=== PATIENT | male | born 1990 | race Caucasian/White ===

== ENCOUNTER → 2016-08-26 | Outpatient (CLI) | payer OTHER ==
[~2016-08-26] MED LIST: IOHEXOL 350 MG/ML 100 ML (OMNIPAQUE 350) VIAL IV ONE; NS 100 ML (IVPB) BAG IV ONE
--- OUTSIDE RECORDS SUMMARY | 2016-08-26 10:33 | XMS REPORT ---
Author Author ARUN JOSEPH Organization [employer] Address Unknown Phone Unavailable Care Team Providers Care Textile Screen Printer Name Role Phone ARUN JOSEPH CP Unavailable Allergies, Adverse Reactions, Alerts Substance Reaction Event Type N.K.D.A. Info Not Available Non Drug Allergy Problems Problem Type Condition Code Onset Dates Condition Status Assessment Elevated blood pressure I10 Active Assessment Well adult health check Z00.00 Active Assessment Obesity, unspecified obesity severity, unspecified obesity type E66.9 Active Problem Elevated blood pressure I10 Active Problem Dermatophytosis of nail 110.1 Active Problem Obesity, unspecified obesity severity, unspecified obesity type E66.9 Active Assessment Screening Z13.9 Active Assessment Visit for TB skin test Z11.1 Active Problem Costochondritis 733.6 Active Problem Other abnormal glucose 790.29 Active Medications No Known Medications Procedures Procedure Coding System Code Date DRUG SCREEN NON TLC DEVICES CPT-4 16649 May 31, 2016 TB INTRADERMAL TEST CPT-4 70156 May 31, 2016 TB INTRADERMAL TEST CPT-4 44592 May 31, 2016 Preventive Care Est Pt. Age 18-39 CPT-4 22359 May 31, 2016 Vital Signs Date/Time: May 31, 2016 Cardiac Monitoring Heart Rate 92 bpm Weight 374 lbs Height 69 in BMI 55.22 Index Blood Pressure Diastolic 90 mmHg Blood Pressure Systolic 118 mmHg Results No Known Results Summary Purpose [employer] Submission
--- NOTE | 2016-08-26 12:04 | Diagnostic Imaging Report ---
PROCEDURE: CT head with and without contrast. TECHNIQUE: Multiple contiguous axial images were obtained through the brain before and after the administration of intravenous contrast. INDICATION: Left facial numbness and weakness. CONTRAST: 80 mL Omnipaque-350 is administered intravenously. FINDINGS: The unenhanced phase demonstrates no intracranial hemorrhage, edema or mass effect. The brain parenchyma and ac-white matter differentiation are preserved. No hydrocephalus. No extra-axial fluid collection or hemorrhage is seen. The phase after contrast administration demonstrates no enhancing mass. The paranasal sinuses demonstrate opacification of the left frontal sinus. There is a polypoid lesion seen in the right frontal sinus with contrast enhancement measuring 1.4 x 0.8 cm. This is only seen on one axial image and could be artifact from volume averaging on this CT head protocol study. There is also mucosal thickening in the right maxillary sinus associated with small sinus lumen seen in favor of chronic sinusitis. There is opacification in the ethmoid air cells more prominent on the right side. There is a depressed fracture of the medial wall of the right orbit, likely old. IMPRESSION: 1. No hemorrhage or abnormal enhancement intracranially. 2. There is sinus disease involving the right frontal, the right maxillary and the right ethmoidal air cells, as described above. There is question of enhancing polypoid mass measuring 1.5 cm in the right frontal sinus that is only seen on a single image and could possibly be an artifact. Clinical correlation, and dedicated sinus CT scan or MRI with and without intravenous contrast is recommended for further evaluation. Report given to Dr. Roldan at 12:03 p.m. 08/26/2016/cb Dictated by: Dictated on workstation # [id number]
== END ==
LOC: RAD 10:30
PROVIDERS: ATTEND Internal Medicine
DX: R29.810 Facial weakness (principal)
CPT/HCPCS: 70470

== ENCOUNTER 2023-05-08 08:40 | Emergency (ER) | payer SELFPAY ==
[~2023-05-08] VITALS: Ht 175 cm; Wt 156.0 kg
[2023-05-08 08:40] VITALS: BP 135/85
--- NOTE | 2023-05-08 08:59 | ED Abdominal Pain ---
General Chief Complaint: Abdominal/GI Problems Stated Complaint: ABD PAIN RIGHT SIDE Nursing Triage Note: ARRIVED VIA AMB WITH COMPLAINTS OF RIGHT SIDED ABD PAIN STARTING ON TUESDAY. WENT TO WALK IN YESTERDAY AND PRESCRIBED PEPCID. ALSO COMPLAINS OF LOOSE STOOLS. Source of Information: Patient Exam Limitations: No Limitations History of Present Illness Date Seen by Provider: May 08, 2023 Time Seen by Provider: 08:47 Initial Comments 32-year-old male presents to the emergency department today for right-sided abdominal pain. Symptoms have been constant since Tuesday and worsening slightly. No fevers chills nausea or vomiting. He was seen at the walk-in clinic yesterday and told he might be gas. Pain seems to focus in the right mid to lower abdomen and described as sharp stabbing without radiation. No obvious aggravating or alleviating factors. He has had normal bowel movements and normal urine output without any other symptoms. He has not had any intra- abdominal surgeries. All other systems reviewed and negative except documented per HPI. Voice recognition software was used to help create this chart Allergies and Home Medications Allergies Coded Allergies: No Allergy Information Available (Unverified , 08/26/16) Patient Home Medication List Home Medication List Reviewed: Yes Review of Systems Review of Systems Constitutional: see HPI Past Dxvkpby-Ndjpay-Nxzhwg Hx Patient Social History Tobacco Use?: No Substance use?: No Alcohol Use?: No Physical Exam Vital Signs Vital Signs - First Documented 05/08/23 08:40 Temp 36.7 Pulse 97 Resp 16 B/P (MAP) 135/85 (102) Pulse Ox 96 O2 Delivery Room Air Capillary Refill : Less Than 3 Seconds Height/Weight/BMI Height: '" Weight: lbs. oz. kg; 50.00 BMI Method: General Appearance: WD/WN, no apparent distress HEENT: normal ENT inspection, pharynx normal Neck: non-tender, supple Respiratory: chest non-tender, lungs clear, normal breath sounds, no respiratory distress, no accessory muscle use Cardiovascular: regular rate, rhythm, no murmur Gastrointestinal: normal bowel sounds, soft, no organomegaly, other (There is tenderness palpation the right mid abdomen with voluntary guarding. No rebound tenderness. No mass organomegaly. Negative Carlos sign. Negative Rovsing, obturator. Does have some mild periumbilical tenderness.) Extremities: normal range of motion, non-tender, normal inspection Skin: normal color, warm/dry Progress/Results/Core Measures Results/Orders Lab Results Laboratory Tests Test 05/08/23 08:50 05/08/23 09:09 Range/Units White Blood Count 9.4 4.3-11.0 10^3/uL Red Blood Count 5.25 4.30-5.52 10^6/uL Hemoglobin 15.1 13.3-17.7 g/dL Hematocrit 45 40-54 % Mean Corpuscular Volume 85 80-99 fL Mean Corpuscular Hemoglobin 29 25-34 pg Mean Corpuscular Hemoglobin Concent 34 32-36 g/dL Red Cell Distribution Width 13.1 10.0-14.5 % Platelet Count 262 130-400 10^3/uL Mean Platelet Volume 9.5 9.0-12.2 fL Immature Granulocyte % (Auto) 1 % Neutrophils (%) (Auto) 67 42-75 % Lymphocytes (%) (Auto) 24 12-44 % Monocytes (%) (Auto) 7 0-12 % Eosinophils (%) (Auto) 1 0-10 % Basophils (%) (Auto) 1 0-10 % Neutrophils # (Auto) 6.2 1.8-7.8 10^3/uL Lymphocytes # (Auto) 2.2 1.0-4.0 10^3/uL Monocytes # (Auto) 0.7 0.0-1.0 10^3/uL Eosinophils # (Auto) 0.1 0.0-0.3 10^3/uL Basophils # (Auto) 0.1 0.0-0.1 10^3/uL Immature Granulocyte # (Auto) 0.1 0.0-0.1 10^3/uL Sodium Level 140 135-145 MMOL/L Potassium Level 4.1 3.6-5.0 MMOL/L Chloride Level 104 98-107 MMOL/L Carbon Dioxide Level 25 21-32 MMOL/L Anion Gap 11 5-14 MMOL/L Blood Urea Nitrogen 11 7-18 MG/DL Creatinine 0.76 0.60-1.30 MG/DL Estimat Glomerular Filtration Rate 121 BUN/Creatinine Ratio 14 Glucose Level 127 H 70-105 MG/DL Calcium Level 10.0 8.5-10.1 MG/DL Corrected Calcium 8.5-10.1 MG/DL Total Bilirubin 1.0 0.1-1.0 MG/DL Aspartate Amino Transf (AST/SGOT) 16 5-34 U/L Alanine Aminotransferase (ALT/SGPT) 23 0-55 U/L Alkaline Phosphatase 71 40-136 U/L Total Protein 8.2 6.4-8.2 GM/DL Albumin 4.7 H 3.2-4.5 GM/DL Lipase 28 8-78 U/L Urine Color YELLOW Urine Clarity CLEAR Urine pH 5.5 5-9 Urine Specific [place] >=1.030 1.016-1.022 Urine Protein 1+ H NEGATIVE Urine Glucose (UA) NEGATIVE NEGATIVE Urine Ketones NEGATIVE NEGATIVE Urine Nitrite NEGATIVE NEGATIVE Urine Bilirubin NEGATIVE NEGATIVE Urine Urobilinogen 0.2 < = 1.0 MG/DL Urine Leukocyte Esterase NEGATIVE NEGATIVE Urine RBC (Auto) NEGATIVE NEGATIVE Urine RBC NONE /HPF Urine WBC NONE /HPF Urine Squamous Epithelial Cells NONE /HPF Urine Crystals NONE /LPF Urine Bacteria NEGATIVE /HPF Urine Casts NONE /LPF Urine Mucus NEGATIVE /LPF Urine Culture Indicated NO My Orders Orders - RICHIE ARAUJO DO Comprehensive Metabolic Panel (05/08/23 08:56) Ua Culture If Indicated (05/08/23 08:56) Ct Abdomen/Pelvis W (05/08/23 08:56) Cbc With Automated Diff (05/08/23 08:56) Ketorolac Injection (Ketorolac Injection (05/08/23 09:00) Lipase (05/08/23 08:56) Iohexol Injection (Omnipaque 350 Mg/Ml 1 (05/08/23 09:00) Received Contrast (Hold Metformin- Contr (05/08/23 09:00) Ns (Ivpb) 100 Ml (Sodium Chloride 0.9% 1 (05/08/23 09:00) Medications Given in ED Current Medications Medications Dose Ordered Sig/Dimitrios Route Start Time Stop Time Status Last Admin Dose Admin Iohexol 100 ml ONCE ONCE IV 05/08/23 09:00 05/08/23 09:03 DC 05/08/23 09:26 100 ML Ketorolac Tromethamine 15 mg ONCE ONCE IVP 05/08/23 09:00 05/08/23 09:01 DC 05/08/23 09:11 15 MG Sodium Chloride 100 ml ONCE ONCE IV 05/08/23 09:00 05/08/23 09:03 DC 05/08/23 09:26 100 ML Vital Signs/I&O 05/08/23 08:40 Temp 36.7 Pulse 97 Resp 16 B/P (MAP) 135/85 (102) Pulse Ox 96 O2 Delivery Room Air Blood Pressure Mean: 102 Departure Communication (Admissions) Patient is hemodynamically stable and nonsurgical abdominal exam. He has diverticulitis. He is given Vantin and discharged in stable condition. He is given strict return precautions for severe pain or worsening symptoms. He states understanding. He has a nonsurgical abdominal exam. White count is normal with no leukocytosis or left shift. His chemistry is otherwise unremarkable including liver enzymes and lipase Impression Primary Impression: Diverticulitis of intestine Qualified Codes: K57.32 - Diverticulitis of large intestine without perforation or abscess without bleeding Disposition: HOME, SELF-CARE Condition: Stable Departure-Patient Inst. Referrals: NO,LOCAL PHYSICIAN (PCP/Family) Primary Care Physician Patient Instructions: Diverticulitis Add. Discharge Instructions: Take the antibiotics as prescribed until they are gone. Increase your fluids at home and rest. Maintain a low residue diet as discussed. Follow-up with your primary doctor for any nonemergent needs. Return to the emergency department for any severe pain or worsening symptoms despite antibiotic use. All discharge instructions reviewed with patient and/or family. Voiced understanding. Scripts Amoxicillin/Potassium Clav (Amox Tr-K Clv 875-125 mg Tab) 875 Mg-125 Mg Tablet 1 EACH PO BID for 10 Days, #20 TAB Prov: RICHIE ARAUJO DO 05/08/23 RICHIE ARAUJO DO May 08, 2023 08:59
[2023-05-08] MEDS ORDERED: IOHEXOL 350 MG/ML 100 ML (OMNIPAQUE 350) VIAL IV ONE (09:00)
[2023-05-08] MEDS ORDERED: NS 100 ML (IVPB) BAG IV ONE (09:00)
[2023-05-08] MEDS ORDERED: HOLD METFORMIN - RECEIVED CONTRAST 20 ML VIAL IV SCH (09:00)
[2023-05-08] MEDS ORDERED: KETOROLAC INJ 15 MG/ML VIAL IVP ONE (09:00)
[2023-05-08 09:06] LABS: BASOPHILS # (AUTO) 0.1 10^3/uL (0.0-0.1); BASOPHILS % (AUTO) 1 % (0-10); EOSINOPHILS # (AUTO) 0.1 10^3/uL (0.0-0.3); EOSINOPHILS % (AUTO) 1 % (0-10); HEMATOCRIT 45 % (40-54); HEMOGLOBIN 15.1 g/dL (13.3-17.7); LYMPHOCYTES # (AUTO) 2.2 10^3/uL (1.0-4.0); LYMPHOCYTES % (AUTO) 24 % (12-44); MEAN CORPUSCULAR HEMOGLOBIN 29 pg (25-34); MEAN CORPUSCULAR HGB CONC 34 g/dL (32-36); MEAN CORPUSCULAR VOLUME 85 fL (80-99); MEAN PLATELET VOLUME 9.5 fL (9.0-12.2); MONOCYTES # (AUTO) 0.7 10^3/uL (0.0-1.0); MONOCYTES % (AUTO) 7 % (0-12); NEUTROPHILS # (AUTO) 6.2 10^3/uL (1.8-7.8); NEUTROPHILS % (AUTO) 67 % (42-75); PLATELET COUNT 262 10^3/uL (130-400); WHITE BLOOD COUNT 9.4 10^3/uL (4.3-11.0)
[2023-05-08 09:19] LABS: ALBUMIN 4.7 GM/DL (3.2-4.5)
[2023-05-08 09:20] LABS: CHLORIDE 104 MMOL/L (98-107); POTASSIUM 4.1 MMOL/L (3.6-5.0); SODIUM 140 MMOL/L (135-145)
[2023-05-08 09:22] LABS: GLUCOSE 127 MG/DL (70-105); TOTAL PROTEIN 8.2 GM/DL (6.4-8.2)
[2023-05-08 09:23] LABS: CARBON DIOXIDE 25 MMOL/L (21-32)
[2023-05-08 09:25] LABS: ALKALINE PHOSPHATASE 71 U/L (40-136)
[2023-05-08 09:26] LABS: CREATININE SERUM 0.76 MG/DL (0.60-1.30); GFR ESTIMATED 121
[2023-05-08 09:27] LABS: BUN/CREATININE RATIO 14
[2023-05-08 09:28] LABS: ALANINE AMINOTRANSFERASE 23 U/L (0-55)
[2023-05-08 09:29] LABS: LIPASE 28 U/L (8-78)
[2023-05-08 09:45] LABS: BACTERIA,URINE NEGATIVE /HPF; BILIRUBIN,URINE NEGATIVE (NEGATIVE); CLARITY,URINE CLEAR; COLOR,URINE YELLOW; GLUCOSE, URINE (UA) NEGATIVE (NEGATIVE); KETONES,URINE NEGATIVE (NEGATIVE); LEUKOCYTE ESTERASE ,URINE NEGATIVE (NEGATIVE); NITRITE,URINE NEGATIVE (NEGATIVE); PH,URINE 5.5 (5-9); PROTEIN,URINE 1+ (NEGATIVE)
--- NOTE | 2023-05-08 09:47 | Diagnostic Imaging Report ---
EXAMINATION: CT abdomen and pelvis with intravenous contrast. TECHNIQUE: Multiple contiguous axial images were obtained through the abdomen and pelvis after the uneventful administration of intravenous contrast. All CT scans use one or more of the following dose optimizing techniques: automated exposure control, MA and/or KvP adjustment based on patient size and exam type or iterative reconstruction. HISTORY: R sided abd pain COMPARISON: None available. FINDINGS: Lung bases: Bibasilar dependent atelectasis. Solid organs: The liver is normal without focal lesion. The gallbladder is normal. There is no biliary ductal dilation. Pancreas is normal. Spleen is normal. Adrenal glands are normal. The kidneys are normal without hydronephrosis. Bowel: The stomach and small bowel are normal without obstruction. There is scattered colonic diverticulosis. There is wall thickening and inflammatory stranding surrounding a diverticula within the hepatic flexure of the colon Peritoneum: Mild edema within the right mid abdomen without free air, free fluid or loculated fluid collection. No suspicious lymphadenopathy. Vasculature: Normal without aneurysm. Musculoskeletal: No suspicious osseous lesion or compression fracture. There are bilateral L5 pars defects. Pelvis: The prostate gland is normal. The urinary bladder is normal. IMPRESSION: 1. Findings of acute diverticulitis of the ascending colon without abscess or free air. Dictated by: Dictated on workstation # [id number]
[2023-05-08] MEDS ORDERED: AMOX1TAB12 PO (09:54)
== END 2023-05-08 09:57 | disposition home or self-care (01) ==
LOC: EDUNIT# 08:40 → ER 08:41
DX: K57.32 Diverticulitis of large intestine without perforation or abscess without bleeding (principal)
CPT/HCPCS: 36415; 74177; 80053; 81000; 83690; 85025